=== PATIENT | male | born 1985 | race Caucasian/White ===

== ENCOUNTER 2019-02-26 13:06 | Emergency (ER) | payer OTHER ==
[2019-02-26] MEDS ORDERED: Tetracaine 0.5% 2 ML Bottle ONE (13:25)
[2019-02-26] MEDS ORDERED: Ciprofloxacin 0.3% Ophth Soln 2.5 ML Bottle ONE (13:25)
--- NOTE | 2019-02-26 16:23 | EDM.PDOC ---
ED HPI GENERAL MEDICAL PROBLEM - General Chief Complaint: ENT Problem Stated Complaint: EYE INJURY Time Seen by Provider: 02/26/19 13:10 Source of Information: Reports: Patient History Limitations: Reports: No Limitations - History of Present Illness INITIAL COMMENTS - FREE TEXT/NARRATIVE: Pt works for [employer]. Happened at work.He was fixing and electrical issue near [place], and was digging with protective glasses, but the twig hit his face and got under the glasses and hit hies left eye and he sustained painful injury to the left cornea.He has been feeling gritty sensation in the left eye and also has been having some blurry vision over the lateral aspect of the peripheral vision. No redness in the eye. Pt has not rubbed his eye. No halo around the lights. Onset: Today Onset Date: 02/26/19 Onset Time: 12:00 Location: Reports: Other (left eye) Quality: Reports: Ache Severity: Mild Improves with: Reports: None Worsens with: Reports: None Associated Symptoms: Denies: Confusion, Chest Pain, Cough, Diaphoresis, Fever/ Chills, Headaches, Nausea/Vomiting, Rash, Seizure, Shortness of Breath, Syncope , Weakness left eye Pain Score (Numeric/FACES): 1 - Related Data Allergies Allergy/AdvReac Type Severity Reaction Status Date / Time No Known Allergies Allergy Verified 02/26/19 13:41 Home Meds: Home Meds NK [No Known Home Meds] 02/26/19 [History] ED ROS GENERAL - Review of Systems Review Of Systems: See Below Constitutional: Denies: Fever, Chills HEENT: Reports: Eye Pain, Vision Change. Denies: Ear Pain, Eye Discharge, Nose Pain, Rhinitis, Throat Pain Respiratory: Denies: Shortness of Breath, Cough, Sputum Cardiovascular: Denies: Chest Pain, Blood Pressure Problem, Syncope GI/Abdominal: Denies: Abdominal Pain, Nausea, Vomiting Musculoskeletal: Denies: Joint Pain, Joint Swelling Skin: Denies: Bruising, Pruritis, Rash ED EXAM, GENERAL - Physical Exam Exam: See Below General Appearance: Alert, WD/WN, No Apparent Distress Eye Exam: Left Eye: Conjunctival Injection, Corneal Abrasion (there is a curvilinear abrasions about 4 mm long over the outer lateral aspect of the cornea. there is no circumcorneal congestion. No aqueous leak noted.Fluroscopic exam shows corneal abrasion .), Bilateral Eye: EOMI Ears: Normal External Exam, Normal Canal, Hearing Grossly Normal, Normal TMs Ear Exam: Bilateral Ear: Auricle Normal, Canal Normal, TM normal Nose: Normal Inspection, Normal Mucosa, No Blood Throat/Mouth: Normal Inspection, Normal Lips, Normal Teeth, Normal Gums, Normal Oropharynx, Normal Voice, No Airway Compromise Head: Atraumatic, Normocephalic Neck: Normal Inspection, Supple, Non-Tender, Full Range of Motion Course - Vital Signs Text/Narrative:: Pt has sustained left eye corneal abrasion which does involve the optic axis of the eye. I have started patient on Cipro eye drops every 2 hrs for next 24 hrs. Advised to return tomorrow for recheck. Advised to return to emergency room [facility], if patient develops severe left eye pain, redness, visual loss, blurry vision, nausea or vomiting. Last Recorded V/S: Last Vital Signs Temp 98.1 F 02/26/19 13:25 Pulse 80 02/26/19 13:25 Resp 16 02/26/19 13:25 BP 143/103 H 02/26/19 13:25 Pulse Ox 98 02/26/19 13:25 Departure - Departure Time of Disposition: 13:55 Disposition: Home, Self-Care 01 Condition: Fair Clinical Impression: Left corneal abrasion - Discharge Information *PRESCRIPTION DRUG MONITORING PROGRAM REVIEWED*: Not Applicable *COPY OF PRESCRIPTION DRUG MONITORING REPORT IN PATIENT MARGI: Not Applicable Instructions: Ciprofloxacin eye solution, Corneal Abrasion, [id number] Referrals: PCP,None [Primary Care Provider] - Forms: ED Department Discharge Additional Instructions: Come to the ER for a re-evaluation tomorrow afternoon. Use the eye drops every 2 hours for the next two days. If the eye pain and discomfort has not improved by morning or has gotten worse, the vision has changed/ worsened, or you become sick to your stomach; return to the ER to be seen. Use Ibuprofen or Tylenol at home for the discomfort or if you do get a headache. Call [phone] on Thursday to have the workers comp process started. - Problem List & Annotations (1) Left corneal abrasion SNOMED Code(s): 69700775824780754 Code(s): S05.02XA - INJ CONJUNCTIVA AND CORNEAL ABRASION W/O FB, LEFT EYE, INIT Status: Acute - Problem List Review Problem List Initiated/Reviewed/Updated: Yes - Assessment/Plan Assessment:: Let corneal abrasion Plan: Pt has sustained left eye corneal abrasion which does involve the optic axis of the eye. I have started patient on Cipro eye drops every 2 hrs for next 24 hrs. Advised to return tomorrow for recheck. Advised to return to emergency room [facility], if patient develops severe left eye pain, redness, visual loss, blurry vision, nausea or vomiting.
== END 2019-02-26 13:50 | disposition home or self-care (01) ==
LOC: LB.ED 13:06
DX: S05.02XA Injury of conjunctiva and corneal abrasion without foreign body, left eye, initial encounter (principal); W22.8XXA Striking against or struck by other objects, initial encounter; Y99.0 Civilian activity done for income or pay
CPT/HCPCS: 99283; A9270-GY

== ENCOUNTER 2024-09-16 11:21 | Emergency (ER) | payer BC ==
[2024-09-16] MEDS: Aspirin 81 MG Tab.Chew PO ONE (11:28)
[2024-09-16] MEDS ORDERED: Sodium Chloride 0.9% 10 ML Syringe FLUSH PRN (11:48)
[2024-09-16] MEDS: Heparin Sodium 5,000 Units/ML Vial IVPUSH ONE (12:16)
[2024-09-16] MEDS: Nitroglycerin/D5W 25 MG/250 ML BOTTLE IV SCH (12:20)
[2024-09-16 12:39] LABS: INFLUENZA A NAA NEGATIVE (NEGATIVE); INFLUENZA B NAA NEGATIVE (NEGATIVE); RESPIRATORY SYNCYTIAL VIR NAA NEGATIVE (NEGATIVE)
[2024-09-16 12:40] LABS: CORONAVIRUS COVID-19 NAA NEGATIVE (NEGATIVE)
[2024-09-16] MEDS: Heparin Sodium/D5W 25,000 UNITS/500 ML BAG IV SCH (12:42)
[2024-09-16] MEDS: Morphine 2 MG/ML SYRINGE ONE (12:47)
[2024-09-16] MEDS: Morphine 2 MG/ML SYRINGE IVPUSH ONE (12:53)
== END 2024-09-16 15:13 ==
LOC: LB.ED 11:21
DX: I21.4 Non-ST elevation (NSTEMI) myocardial infarction (principal)
CPT/HCPCS: 0241U; 36415; 85379; 85730; 96365; 96366; 96367; 96375; 99285; A9270; J1644; J2270; J2305; A0425; A0428

== ENCOUNTER 2024-10-02 11:23 | Emergency (ER) | payer BC ==
[2024-10-02] MEDS ORDERED: Sodium Chloride 0.9% 10 ML Syringe FLUSH PRN (11:28)
[2024-10-02 11:59] LABS: HEMATOCRIT 44.7 % (40.0-54.0); HEMOGLOBIN 15.8 g/dL (13.0-18.0); MEAN CORPUSCULAR HEMOGLOBIN 30.6 pg (27.0-32.0); MEAN CORPUSCULAR HGB CONC 35.3 g/dL (31.0-35.0); MEAN PLATELET VOLUME 9.3 fL (6.0-10.0); RED BLOOD CELL COUNT 5.17 M/uL (4.50-6.50); RED CELL DISTRIBUTION WIDTH 12.4 % (11.0-16.0); WHITE BLOOD CELL COUNT,WBC 7.6 K/uL (4.0-11.0)
[2024-10-02 12:14] LABS: ALBUMIN 4.1 g/dL (3.4-5.0); ANION GAP 14.5 mmol/L (5.0-15.0); BILIRUBIN TOTAL 0.8 mg/dL (0.0-1.0); BUN/CREATININE RATIO 16.9 (6-25); CARBON DIOXIDE,CO2 27.4 mmol/L (21.0-32.0); CREATININE 1.48 mg/dL (0.70-1.30); EST CRCL DRUG DOSING (CG) 67.82 mL/min; MAGNESIUM 1.8 mg/dL (1.8-2.4); POTASSIUM,K 3.9 mmol/L (3.5-5.1); PROTEIN TOTAL,TP 8.1 g/dL (6.4-8.2); TROPONIN I HIGH SENSITIVITY 21.5 pg/ml (<=60.4)
[2024-10-02] MEDS: Sodium Chloride 0.9% 1,000 ML IV SCH (12:26)
[2024-10-02] MEDS: Nitroglycerin 0.4 MG Tab.SL SL ONE (12:46)
[2024-10-02] MEDS: GI Cocktail Oral Solution 30 ML PO ONE (13:01)
[2024-10-02] MEDS: Morphine 4 MG/ML VIAL IVPUSH ONE (13:14)
== END 2024-10-02 13:36 | disposition home or self-care (01) ==
LOC: LB.ED 11:23
DX: R07.89 Other chest pain (principal); N17.9 Acute kidney failure, unspecified; Z79.899 Other long term (current) drug therapy; Z79.82 Long term (current) use of aspirin
CPT/HCPCS: 36415; 71045; 80053; 83735; 84484; 85027; 85379; 93005; 93010; 96361; 96374; 99284; 99285-25; A9270-GY; J2270; J7030

== ENCOUNTER 2025-05-30 11:24 | Emergency (ER) | payer BC ==
[2025-05-30] MEDS ORDERED: Sodium Chloride 0.9% 10 ML Syringe FLUSH PRN (11:41)
[2025-05-30 11:52] LABS: BASOPHILS ABSOLUTE AUTO 0.06 K/uL (0.02-0.10); BASOPHILS PERCENT AUTO 0.8 % (0.0-0.5); EOSINOPHILS ABSOLUTE AUTO 0.09 K/uL (0.04-0.40); EOSINOPHILS PERCENT AUTO 1.2 % (1.0-5.0); LYMPHOCYTES ABSOLUTE AUTO 2.48 K/uL (1.50-4.00); LYMPHOCYTES PERCENT AUTO 32.5 % (20.0-40.0); MEAN PLATELET VOLUME 9.2 fL (6.0-10.0); MONOCYTES ABSOLUTE AUTO 0.63 K/uL (0.20-0.80); MONOCYTES PERCENT AUTO 8.3 % (3.0-10.0); NEUTROPHILS ABSOLUTE AUTO 4.37 K/uL (2.00-7.50); NEUTROPHILS PERCENT AUTO 57.2 % (45.0-70.0); PLATELET COUNT,PLT 159 K/uL (150-400); RED BLOOD CELL COUNT 5.21 M/uL (4.50-6.50); RED CELL DISTRIBUTION WIDTH 12.4 % (11.0-16.0); WHITE BLOOD CELL COUNT,WBC 7.6 K/uL (4.0-11.0)
[2025-05-30] MEDS: Metoprolol Tartrate 5 MG/5 ML SDV IVPUSH ONE (12:03)
[2025-05-30 12:14] LABS: BLOOD UREA NITROGEN,BUN 17.0 mg/dL (8-26); CARBON DIOXIDE,CO2 22.7 mmol/L (21.0-32.0); CHLORIDE,CL 102.0 mmol/L (98-107); CREATININE 1.23 mg/dL (0.70-1.30); EST CRCL DRUG DOSING (CG) 81.61 mL/min; ESTIMATED GFR 76.0 mL/min (>60); GLUCOSE RANDOM 99.0 mg/dL (74-100); POTASSIUM,K 3.4 mmol/L (3.5-5.1); SODIUM,NA 138.0 mmol/L (136-145); TROPONIN I HIGH SENSITIVITY 8.0 pg/ml (<=60.4)
== END 2025-05-30 13:12 | disposition home or self-care (01) ==
LOC: LB.ED 11:24
DX: F41.9 Anxiety disorder, unspecified (principal); I10 Essential (primary) hypertension; I25.2 Old myocardial infarction; Z79.899 Other long term (current) drug therapy; Z79.82 Long term (current) use of aspirin
CPT/HCPCS: 36415; 80048; 84484; 85025; 93005; 96374; 99285-25; J3490